=== PATIENT | female | born 1950 | race Caucasian/White ===

== ENCOUNTER 2017-08-28 17:58 | Emergency (ER) | payer BC, MEDICARE, OTHER ==
[2017-08-28 18:25] VITALS: BP 165/74
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
--- NOTE | 2017-08-28 19:04 | RAD ---
INDICATION: Neck injury COMPARISON: None TECHNIQUE: A single lateral view the cervical spine is submitted FINDINGS: Bones: There are no definitive acute bony findings. There are arthritic changes with mild disc space narrowing at C5-C6. There is minor osteophyte formation. Craniocervical junction: The odontoid and atlantodental interval are normal. Alignment: There is a 3 mm retrolisthesis of C5 relative to C6. This may be be on a degenerative basis. Disc spaces: The disc spaces are well-maintained Soft tissues: The prevertebral soft tissues are normal. IMPRESSION: MIDCERVICAL OSTEOARTHRITIC CHANGE. NO DEFINITIVE ACUTE FINDINGS. SUGGEST COMPLETION OF THE SERIES.
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
== END 2017-08-28 19:47 | disposition home or self-care (01) ==
LOC: UCEAST 17:58
DX: S16.1XXA Strain of muscle, fascia and tendon at neck level, initial encounter (principal); R51 Headache; V49.9XXA Car occupant (driver) (passenger) injured in unspecified traffic accident, initial encounter; Y93.89 Activity, other specified; Y92.9 Unspecified place or not applicable
CPT/HCPCS: 72020; 72050; 99212; G0463